=== PATIENT | male | born 1995 | race Caucasian/White ===

== ENCOUNTER 2019-02-23 17:24 | Emergency (ER) | payer BC ==
[~2019-02-23] VITALS: Ht 180.3 cm; Wt 80.0 kg
[2019-02-23 17:32] VITALS: BP 156/83; TEMP 98.1
[2019-02-23 19:04] VITALS: PULSE 68
== END 2019-02-23 19:05 | disposition home or self-care (01) ==
LOC: COL.ER 17:24
DX: S52.511A Displaced fracture of right radial styloid process, initial encounter for closed fracture (principal); V80.010A Animal-rider injured by fall from or being thrown from horse in noncollision accident, initial encounter; Y92.219 Unspecified school as the place of occurrence of the external cause
CPT/HCPCS: Q4050